=== PATIENT | male | born 1970 | race Caucasian/White ===

== ENCOUNTER 2021-11-26 13:31 | Emergency (ER) | payer BC ==
[2021-11-26 14:15] LABS: BASO # 0.03 K/mm3 (0.02-0.10); HEMATOCRIT 42.4 % (42.0-52.0); HEMOGLOBIN 14.4 g/dL (13.5-18.0); LYMPH# 1.99 K/mm3 (1.50-4.00); MEAN CELL VOLUME 88 fl (78-100); MEAN CORPUSCULAR HEMOGLOBIN 30 pg (27-31); MEAN CORPUSCULAR HGB CONC 34 g/dL (33-37); MEAN PLATELET VOLUME 10.3 fl (7.4-10.4); MONO # 0.96 K/mm3 (0.20-0.80); PLATELET COUNT 214 K/mm3 (130-400); RED BLOOD COUNT 4.81 M/mm3 (4.20-5.60); RED CELL DISTRIBUTION WIDTH 12.3 % (11.5-14.5)
[2021-11-26 14:26] LABS: ALBUMIN 4.2 g/dL (3.5-5.0)
[2021-11-26 14:27] LABS: POTASSIUM 3.5 mmol/L (3.5-5.1)
[2021-11-26 14:28] LABS: CALCIUM 8.7 mg/dL (8.3-10.5)
[2021-11-26 14:29] LABS: TOTAL PROTEIN 6.9 g/dL (6.4-8.3)
[2021-11-26 14:31] LABS: TOTAL BILIRUBIN 1.8 mg/dL (0.2-1.2)
[2021-11-26 14:59] LABS: URINE APPEARANCE CLEAR; URINE BILIRUBIN NEGATIVE (NEGATIVE); URINE BLOOD NEGATIVE (NEGATIVE); URINE COLOR YELLOW; URINE GLUCOSE NEGATIVE (NEGATIVE); URINE KETONE 2+ (NEGATIVE); URINE LEUKOCYTE ESTERASE NEGATIVE (NEGATIVE); URINE MUCUS PRESENT (NOT PRESENT); URINE NITRATE NEGATIVE (NEGATIVE); URINE PROTEIN(semi-quant) 1+ (NEGATIVE); URINE UROBILINOGEN NORMAL (NORMAL)
[2021-11-26] MEDS ORDERED: PENICILLIN-VK500 M1 PO (16:17)
[2021-11-26 16:33] VITALS: BP 157/96
== END 2021-11-26 16:34 | disposition home or self-care (01) ==
LOC: ED 13:31
PROVIDERS: Nurse Practitioner Family
DX: J02.9 Acute pharyngitis, unspecified (principal); R22.1 Localized swelling, mass and lump, neck; Z20.822 Contact with and (suspected) exposure to COVID-19
CPT/HCPCS: J2930; J7030; Q9967